=== PATIENT | male | born 2005 | race Caucasian/White ===

== ENCOUNTER 2024-10-14 09:05 | Outpatient (CLI) | payer BC, SELFPAY | END 2024-10-14 09:06 | disposition home or self-care (01) | PROVIDERS: PCP Family Medicine; Visit Provider Family Medicine | DX: L70.9 Acne, unspecified (principal); Z13.6 Encounter for screening for cardiovascular disorders; Z13.9 Encounter for screening, unspecified | CPT/HCPCS: 80048; 80061 ==